=== PATIENT | male | born 1965 | race Caucasian/White ===

== ENCOUNTER 2019-06-26 11:38 | Inpatient (IN) ==
[2019-06-26] MEDS ORDERED: ALTEPLASE 9 MG in PREMIX 1 EACH IV ONE (12:17)
[2019-06-26] MEDS ORDERED: ALTEPLASE 100 MG/100 ML BOTTLE ONE (12:25)
[2019-06-26 12:41] LABS: Basophils % 0.3 % (0.0-0.8); Eosinophils # 0.5 10*3/uL (0.0-0.87); Eosinophils % 3.9 % (0.00-10.9); Hematocrit 45.5 VOL% (42.0-52.0); Immature Granulocytes % 0.5 %; Immature Granulocytes Absolute 0.06 #; Lymphocytes # 2.4 10*3/uL (1.4-4.0); Lymphocytes % 20.2 % (21.2-54.2); Mean Corpuscular Volume 89.4 FL (87-102); Mean Platelet Volume 9.7 FL (9.6-12.0); Monocytes % 9.2 % (1.7-12.7); Neutrophils % 65.9 % (38.7-73.9); Platelet Count 275 T/CUMM (130-400); Red Blood Count 5.09 MC/CUMM (3.8-5.5); Red Cell Distribution Width 17.2 % (9.3-17.3); White Blood Count 12.1 T/CUMM (4-12)
[2019-06-26 12:50] LABS: INR 0.9; PT Patient Result 10.1 SECS (9.6-12.2)
[2019-06-26 12:53] LABS: Apearance,Urine CLEAR (Clear); Bilirubin,Urine Negative (Negative); Blood, Urine Negative (Negative); Glucose,Urine (UA) Negative (Negative); Ketones,Urine Negative (Negative); Mucus,Urine Occasional /LPF (Occasional); Nitrite,Urine Negative (Negative); Protein,Urine Negative; RBC,Urine 1 /HPF (0-4); Squamous Epithelial Cell,Urine Occasional /HPF (0-10); Urine Color Yellow (Yellow); Urine Specific Gravity 1.009 (1.001-1.035); Urine Urobilinogen < 2.0 EU/DL (0.2-1.0); WBC,Urine <1 /HPF (0-6)
[2019-06-26 12:59] LABS: Alanine Aminotransferase 26 U/L (16-61); Albumin 3.5 G/DL (3.4-5.0); Alkaline Phosphatase 64 U/L (45-117); Aspartate Amino Transferase 18 U/L (0-37); Blood Urea Nitrogen 19 MG/DL (7-18); Calcium 8.4 MG/DL (8.5-10.1); Glucose 123 MG/DL (74-106); Osmolality,Calculated 281.4 MOS/KG (273-304); Total Protein 7.2 G/DL (6.4-8.3)
[2019-06-26 13:37] LABS: Barbiturates Screen,Urine Negative (Negative); Benzodiazepines Screen,Urine Negative (Negative); Cannabinoid Screen,Urine Negative (Negative); Opiate Screen,Urine Negative (Negative); Phencyclidine Screen,Urine Negative (Negative)
[2019-06-26] MEDS ORDERED: ALBUTEROL 2.5 MG/3 ML NEB RESP TX PRN (15:02)
[2019-06-26] MEDS: ATORVASTATIN 40 MG TABLET PO SCH (20:58)
[2019-06-26] MEDS: METOPROLOL TARTRATE 100 MG TABLET PO SCH (20:58)
[2019-06-26] MEDS: AMIODARONE 200 MG TABLET PO SCH (20:58)
[2019-06-26] MEDS ORDERED: FUROSEMIDE 40 MG TABLET PO SCH (21:00)
[2019-06-27 05:06] LABS: Basophils % 0.2 % (0.0-0.8); Eosinophils # 0.2 10*3/uL (0.0-0.87); Eosinophils % 1.1 % (0.00-10.9); Hematocrit 45.7 VOL% (42.0-52.0); Immature Granulocytes % 0.4 %; Immature Granulocytes Absolute 0.06 #; Lymphocytes # 2.2 10*3/uL (1.4-4.0); Lymphocytes % 13.1 % (21.2-54.2); Mean Corpuscular HGB Conc 32.8 GM/DL (32-36); Mean Corpuscular Volume 89.4 FL (87-102); Mean Platelet Volume 10.2 FL (9.6-12.0); Monocytes % 8.7 % (1.7-12.7); Neutrophils % 76.5 % (38.7-73.9); Platelet Count 272 T/CUMM (130-400); Red Blood Count 5.11 MC/CUMM (3.8-5.5); Red Cell Distribution Width 17.3 % (9.3-17.3); White Blood Count 16.5 T/CUMM (4-12)
[2019-06-27 05:27] LABS: Calcium 8.6 MG/DL (8.5-10.1); Osmolality,Calculated 283.3 MOS/KG (273-304); Risk Ratio 4.93; VLDL CHOLESTEROL 22.2 MG/DL
[2019-06-27] MEDS: FUROSEMIDE 40 MG/4 ML VIAL IV SCH (08:47)
[2019-06-27] MEDS: LOSARTAN 25 MG TABLET PO SCH (08:48)
[2019-06-27] MEDS: ASPIRIN EC 81 MG TABLET PO SCH (08:48)
[2019-06-27] MEDS: AMIODARONE 200 MG TABLET PO SCH ×2 (08:48→21:05)
[2019-06-27] MEDS: METOPROLOL TARTRATE 100 MG TABLET PO SCH ×2 (08:48→21:05)
[2019-06-27] MEDS: ACETAMINOPHEN 325 MG TABLET PO PRN (17:45)
[2019-06-27] MEDS: ATORVASTATIN 40 MG TABLET PO SCH (21:05)
[2019-06-28 06:31] LABS: Basophils % 0.1 % (0.0-0.8); Eosinophils # 0.3 10*3/uL (0.0-0.87); Eosinophils % 1.6 % (0.00-10.9); Immature Granulocytes % 0.4 %; Immature Granulocytes Absolute 0.07 #; Lymphocytes # 2.3 10*3/uL (1.4-4.0); Lymphocytes % 14.7 % (21.2-54.2); Mean Corpuscular HGB Conc 33.3 GM/DL (32-36); Mean Corpuscular Volume 88.9 FL (87-102); Monocytes % 8.5 % (1.7-12.7); Neutrophils % 74.7 % (38.7-73.9); Platelet Count 264 T/CUMM (130-400); Red Blood Count 5.06 MC/CUMM (3.8-5.5); Red Cell Distribution Width 17.2 % (9.3-17.3); White Blood Count 15.7 T/CUMM (4-12)
[2019-06-28 06:47] LABS: Calcium 8.4 MG/DL (8.5-10.1); Osmolality,Calculated 275.8 MOS/KG (273-304)
[2019-06-28] MEDS ORDERED: RIVAROXABAN 20 MG TABLET PO SCH (09:00)
[2019-06-28] MEDS: LOSARTAN 25 MG TABLET PO SCH (09:10)
[2019-06-28] MEDS: AMIODARONE 200 MG TABLET PO SCH ×2 (09:10→21:29)
[2019-06-28] MEDS: ASPIRIN EC 81 MG TABLET PO SCH (09:10)
[2019-06-28] MEDS: FUROSEMIDE 40 MG/4 ML VIAL IV SCH (09:10)
[2019-06-28] MEDS: METOPROLOL TARTRATE 100 MG TABLET PO SCH ×2 (09:16→21:29)
[2019-06-28] MEDS ORDERED: MANNITOL 12.5 GM/50 ML VIAL IV SCH (15:00)
[2019-06-28] MEDS: MANNITOL IV SCH (16:21)
[2019-06-28] MEDS: ATORVASTATIN 40 MG TABLET PO SCH (21:29)
[2019-06-29] MEDS: MANNITOL IV SCH ×3 (01:15→16:27)
[2019-06-29 03:55] LABS: Basophils # 0.1 10*3/uL (0.0-0.2); Basophils % 0.4 % (0.0-0.8); Eosinophils # 0.5 10*3/uL (0.0-0.87); Eosinophils % 3.7 % (0.00-10.9); Hematocrit 46.4 VOL% (42.0-52.0); Hemoglobin 15.3 GM/DL (14.0-18.0); Immature Granulocytes % 0.8 %; Immature Granulocytes Absolute 0.11 #; Lymphocytes # 2.7 10*3/uL (1.4-4.0); Lymphocytes % 19.8 % (21.2-54.2); Mean Corpuscular Volume 89.6 FL (87-102); Mean Platelet Volume 9.6 FL (9.6-12.0); Monocytes % 9.5 % (1.7-12.7); Neutrophils % 65.8 % (38.7-73.9); Platelet Count 249 T/CUMM (130-400); Red Blood Count 5.18 MC/CUMM (3.8-5.5); Red Cell Distribution Width 17.4 % (9.3-17.3); White Blood Count 13.6 T/CUMM (4-12)
[2019-06-29 04:09] LABS: Calcium 8.5 MG/DL (8.5-10.1); Osmolality,Calculated 276.7 MOS/KG (273-304)
[2019-06-29 08:17] LABS: Eosinophils 2 % (0-10); Lymphocytes 25 % (20-55); Platelet Estimate Normal; Polychromasia Slight; Segmented Neutrophils 64 % (50-85); Total Cells Counted 100
[2019-06-29] MEDS: METOPROLOL TARTRATE 100 MG TABLET PO SCH ×2 (09:20→21:19)
[2019-06-29] MEDS: LOSARTAN 25 MG TABLET PO SCH (09:20)
[2019-06-29] MEDS: AMIODARONE 200 MG TABLET PO SCH ×2 (09:20→21:19)
[2019-06-29] MEDS: ATORVASTATIN 40 MG TABLET PO SCH (21:19)
[2019-06-30] MEDS: MANNITOL IV SCH ×2 (01:08→09:01)
[2019-06-30] MEDS: ACETAMINOPHEN 325 MG TABLET PO PRN ×2 (01:21→14:59)
[2019-06-30 04:59] LABS: Basophils % 0.2 % (0.0-0.8); Eosinophils # 0.6 10*3/uL (0.0-0.87); Hematocrit 46.2 VOL% (42.0-52.0); Hemoglobin 15.1 GM/DL (14.0-18.0); Immature Granulocytes % 0.4 %; Immature Granulocytes Absolute 0.05 #; Lymphocytes # 2.4 10*3/uL (1.4-4.0); Lymphocytes % 17.7 % (21.2-54.2); Mean Corpuscular HGB Conc 32.7 GM/DL (32-36); Mean Corpuscular Volume 88.3 FL (87-102); Mean Platelet Volume 9.9 FL (9.6-12.0); Monocytes % 8.1 % (1.7-12.7); Neutrophils % 69.6 % (38.7-73.9); Platelet Count 282 T/CUMM (130-400); Red Blood Count 5.23 MC/CUMM (3.8-5.5); Red Cell Distribution Width 16.6 % (9.3-17.3); White Blood Count 13.8 T/CUMM (4-12)
[2019-06-30 05:37] LABS: Calcium 8.7 MG/DL (8.5-10.1); Osmolality,Calculated 271.1 MOS/KG (273-304)
[2019-06-30] MEDS: LOSARTAN 25 MG TABLET PO SCH (09:13)
[2019-06-30] MEDS: AMIODARONE 200 MG TABLET PO SCH ×2 (09:13→20:56)
[2019-06-30] MEDS: ASPIRIN EC 81 MG TABLET PO SCH (09:13)
[2019-06-30] MEDS: METOPROLOL TARTRATE 100 MG TABLET PO SCH ×2 (09:14→20:56)
[2019-06-30] MEDS: ATORVASTATIN 40 MG TABLET PO SCH (20:56)
[2019-07-01 05:09] LABS: Basophils % 0.3 % (0.0-0.8); Eosinophils # 0.4 10*3/uL (0.0-0.87); Eosinophils % 3.3 % (0.00-10.9); Hematocrit 44.6 VOL% (42.0-52.0); Hemoglobin 14.9 GM/DL (14.0-18.0); Immature Granulocytes % 0.4 %; Immature Granulocytes Absolute 0.05 #; Lymphocytes # 1.6 10*3/uL (1.4-4.0); Lymphocytes % 14.2 % (21.2-54.2); Mean Corpuscular HGB Conc 33.4 GM/DL (32-36); Mean Corpuscular Volume 87.8 FL (87-102); Mean Platelet Volume 9.7 FL (9.6-12.0); Monocytes % 9.8 % (1.7-12.7); Platelet Count 280 T/CUMM (130-400); Red Blood Count 5.08 MC/CUMM (3.8-5.5); Red Cell Distribution Width 16.2 % (9.3-17.3); White Blood Count 11.3 T/CUMM (4-12)
[2019-07-01 05:30] LABS: Calcium 8.8 MG/DL (8.5-10.1); Osmolality,Calculated 271.1 MOS/KG (273-304)
[2019-07-01] MEDS: AMIODARONE 200 MG TABLET PO SCH (08:09)
[2019-07-01] MEDS: LOSARTAN 25 MG TABLET PO SCH (08:09)
[2019-07-01] MEDS: ASPIRIN EC 81 MG TABLET PO SCH (08:09)
[2019-07-01] MEDS: METOPROLOL TARTRATE 100 MG TABLET PO SCH (08:09)
[2019-07-01 11:38] VITALS: BP 111/74
[2019-07-01] MEDS ORDERED: DESITIN 4OZ/NYSTATIN 15 GRAM MIXTURE PASTE TOP SCH (13:30)
== END 2019-07-01 14:04 | DRG 61 ==
LOC: N.ED 11:38 → SUPCPDRO 14:14 → SUATTDRO 14:14 → N.EDINP 14:14 → N.4E 14:35 → N.ICU 06-28 15:02 → N.4E 06-30 12:18
PROVIDERS: ADMIT Internal Medicine; ATTEND Internal Medicine